=== PATIENT | female | born 1965 | race Caucasian/White ===

== ENCOUNTER 2018-04-05 14:42 | Emergency (ER) | payer OTHER | END 2018-04-05 16:41 | disposition home or self-care (01) | LOC: FTE 14:42 | DX: H10.022 Other mucopurulent conjunctivitis, left eye (principal); J32.9 Chronic sinusitis, unspecified | CPT/HCPCS: 99284; Z7502 ==

== ENCOUNTER 2019-02-28 23:26 | Emergency (ER) | payer OTHER | END 2019-03-01 02:04 | disposition home or self-care (01) | LOC: FTE 23:26 | DX: H10.023 Other mucopurulent conjunctivitis, bilateral (principal) | CPT/HCPCS: 99283; Z7502 ==